=== PATIENT | female | born 1990 | race American Indian/Alaskan Native ===

== ENCOUNTER 2019-10-23 17:51 | Emergency (ER) | payer BC, MEDICAID ==
[2019-10-23 20:32] VITALS: BP 127/71
--- NOTE | 2019-10-23 20:34 | Event Note ---
ED Screening Note Date of service: 10/23/19 Time: 20:33 ED Screening Note: 29 y o female presents with umbilical pain and swelling that has worsened in past couple of days This initial assessment/diagnostic orders/clinical plan/treatment(s) is/are subject to change based on patients health status, clinical progression and re- assessment by fellow clinical providers in the ED. Further treatment and workup at subsequent clinical providers discretion. Patient/guardian urged not to elope from the ED as their condition may be serious if not clinically assessed and managed. Initial orders include: ua,upt,cbc,cmp CT
[2019-10-23 21:17] LABS: Basophils % (Auto) 0.3 % (0.0-1.8); Eosinophils # (Auto) 0.2 K/mm3 (0.0-0.4); Eosinophils % (Auto) 3.6 % (0.0-4.3); Hematocrit 32.8 % (30.3-42.9); Hemoglobin 10.8 gm/dl (10.1-14.3); Lymphocytes # (Auto) 2.5 K/mm3 (1.2-5.4); Lymphocytes % (Auto) 37.3 % (13.4-35.0); Mean Corpuscular HGB Conc 33 % (30-34); Mean Corpuscular Volume 88 fl (79-97); Monocytes # (Auto) 0.7 K/mm3 (0.0-0.8); Monocytes % (Auto) 10.6 % (0.0-7.3); Platelet Count 254 K/mm3 (140-440); Red Blood Count 3.74 M/mm3 (3.65-5.03); Red Cell Distribution Width 16.4 % (13.2-15.2)
[2019-10-23 21:31] LABS: Alanine Aminotransferase 12 units/L (7-56); Albumin 3.8 g/dL (3.9-5); BUN/Creatinine Ratio 12; Blood Urea Nitrogen 12 mg/dL (7-17); Calcium 8.6 mg/dL (8.4-10.2); Hemolysis Index 10
[2019-10-23] MEDS ORDERED: FAMOTIDINE 20 MG/2 ML INJ IV ONE (22:07)
[2019-10-23] MEDS ORDERED: MORPHINE 4 MG/1 ML INJ IV ONE (22:07)
[2019-10-23] MEDS ORDERED: ONDANSETRON 4 MG/2 ML INJ IV ONE (22:07)
[2019-10-23 22:43] LABS: Bacteria,Urine 1+ /HPF (Negative); Bilirubin,Urine NEG (Negative); Blood,Urine NEG (Negative); Color,Urine Yellow (Yellow); Mucus,Urine FEW /HPF; Protein,Urine <15 mg/dL mg/dL (Negative)
[2019-10-23 22:44] LABS: HCG Qualitative,Urine Negative (Negative)
--- NOTE | 2019-10-24 00:08 | Cat Scan Report ---
CT of the abdomen and pelvis with contrast INDICATION: Periumbilical pain x4 days COMPARISON: 04/15/2019 FINDINGS: Lung bases are clear. The liver, spleen, pancreas, adrenal glands and kidneys show no abnor malities. No definite gallbladder or biliary tree abnormality. No fluid or adenopathy in the upper ab domen. There is a moderate sized umbilical hernia containing fat which is indurated suggesting fat ne crosis. There is no bowel within this area and no abscess or fluid. CT of the pelvis shows a normal appendix with no evidence of appendicitis. Follicular cysts are seen in the ovaries without free fluid. No uterine masses. No diverticulosis or diverticulitis. There is n o inguinal hernia or bowel obstruction. Surgical clips are seen in the pelvis these appear to be tuba l ligation clips but in fact are in the left lower quadrant and are not attached to the fallopian tub es. IMPRESSION: 1. Fat-containing umbilical hernia with likely fat necrosis. No bowel is seen in this area. The appen travis is normal. 2. Free-floating surgical clips in the left lower quadrant have the appearance of tubal ligation clip s and again are not attached to the fallopian tubes. Automated exposure control was utilized to diminish radiation dose. Signer Name: Paul Jenkins MD Signed: 10/24/2019 12:04 AM Workstation Name: [id number]
--- NOTE | 2019-10-24 00:47 | Emergency Department Report ---
ED Abdominal Pain HPI - General Chief Complaint: Abdominal Pain Stated Complaint: ABDOMINAL PAIN Source: patient Mode of arrival: Ambulatory Limitations: No Limitations - History of Present Illness Initial Comments: Patient is a 29-year-old -[place] female with no past medical history who presents to the ED with complaint of acute onset persistent periapical pain with nausea and vomiting for the last 2 days. Patient states that the pain is sharp, constant and is worse with any movement. Patient denies dizziness, fever, chills, diarrhea, dysuria, urinary frequency and urgency, constipation, low back pain, vaginal bleeding, dyspareunia, vaginal discharge, cough, chest pain or shortness of breath. MD Complaint: abdominal pain -: Sudden, days(s) (2) Location: periumbilical Radiation: none Migration to: no migration Severity: severe Severity scale (0 -10): 7 Quality: aching, sharp Consistency: constant Improves With: nothing Worsens With: vomiting, movement Associated Symptoms: denies other symptoms, nausea, vomiting, anorexia. denies: diarrhea, fever, chills, dysuria, hematemesis, hematochezia, melena, hematuria - Related Data LMP Date: 10/14/19 Previous Rx's Medication Instructions Recorded Last Taken Type Famotidine [Pepcid] 20 mg PO Q12H #20 tablet 10/24/19 Unknown Rx Ketorolac [Toradol] 10 mg PO Q8H PRN #20 tablet 10/24/19 Unknown Rx Ondansetron [Zofran Odt] 4 mg PO Q6HR PRN #20 tab.rapdis 10/24/19 Unknown Rx cephALEXin [Keflex] 500 mg PO Q8HR #30 capsule 10/24/19 Unknown Rx traMADoL [Ultram] 50 mg PO Q6HR PRN #12 tablet 10/24/19 Unknown Rx Allergies Allergy/AdvReac Type Severity Reaction Status Date / Time No Known Allergies Allergy Unverified 04/15/19 19:45 ED Review of Systems ROS: Stated complaint: ABDOMINAL PAIN Other details as noted in HPI Constitutional: denies: chills, fever Eyes: denies: eye pain, eye discharge, vision change ENT: denies: ear pain, throat pain Respiratory: denies: cough, shortness of breath, wheezing Cardiovascular: denies: chest pain, palpitations Endocrine: no symptoms reported Gastrointestinal: abdominal pain, nausea, vomiting. denies: diarrhea Genitourinary: denies: urgency, dysuria, discharge Musculoskeletal: denies: back pain, joint swelling, arthralgia Skin: denies: rash, lesions Neurological: denies: headache, weakness, paresthesias Psychiatric: denies: anxiety, depression Hematological/Lymphatic: denies: easy bleeding, easy bruising ED Past Medical Hx - Past Medical History Previous Medical History?: No - Surgical History Past Surgical History?: No Additional Surgical History: Dental implants 04/15/19, x3 - Social History Smoking Status: Never Smoker Substance Use Type: None - Medications Home Medications: Home Medications Medication Instructions Recorded Confirmed Last Taken Type Famotidine [Pepcid] 20 mg PO Q12H #20 tablet 10/24/19 Unknown Rx Ketorolac [Toradol] 10 mg PO Q8H PRN #20 tablet 10/24/19 Unknown Rx Ondansetron [Zofran Odt] 4 mg PO Q6HR PRN #20 tab.rapdis 10/24/19 Unknown Rx cephALEXin [Keflex] 500 mg PO Q8HR #30 capsule 10/24/19 Unknown Rx traMADoL [Ultram] 50 mg PO Q6HR PRN #12 tablet 10/24/19 Unknown Rx ED Physical Exam - General Limitations: No Limitations General appearance: alert, in no apparent distress - Head Head exam: Present: atraumatic, normocephalic, normal inspection - Eye Eye exam: Present: normal appearance, PERRL, EOMI Pupils: Present: normal accommodation - ENT ENT exam: Present: normal exam, normal orophraynx, mucous membranes moist, TM's normal bilaterally, normal external ear exam - Neck Neck exam: Present: normal inspection, full ROM - Respiratory Respiratory exam: Present: normal lung sounds bilaterally. Absent: respiratory distress, wheezes, rhonchi, chest wall tenderness, accessory muscle use - Cardiovascular Cardiovascular Exam: Present: regular rate, normal rhythm, normal heart sounds. Absent: systolic murmur, diastolic murmur, rubs, gallop - GI/Abdominal GI/Abdominal exam: Present: soft, tenderness (Palpable umbilical hernia), normal bowel sounds. Absent: guarding, rebound, hyperactive bowel sounds, hypoactive bowel sounds, organomegaly - Extremities Exam Extremities exam: Present: normal inspection, full ROM, normal capillary refill - Back Exam Back exam: Present: normal inspection, full ROM. Absent: tenderness, CVA tenderness (R), muscle spasm, paraspinal tenderness, vertebral tenderness - Neurological Exam Neurological exam: Present: alert, oriented X3, CN II-XII intact, normal gait, reflexes normal - Psychiatric Psychiatric exam: Present: normal affect, normal mood - Skin Skin exam: Present: warm, dry, intact, normal color. Absent: rash ED Course Vital Signs 10/23/19 20:30 Temperature 98 F Pulse Rate 89 Respiratory 18 Rate Blood Pressure 127/71 O2 Sat by Pulse 99 Oximetry ED Medical Decision Making - Lab Data Result diagrams: 10/23/19 20:48 10/23/19 20:48 - Radiology Data Radiology results: report reviewed, [place] [id number] Cat Scan Report Signed Patient: SUE BARKER MR#: [id number] : 1990 Acct:[id number] Age/Sex: 29 / F ADM Date: 10/23/19 Loc: ED Attending Dr: Ordering Physician: CANDY DAN Date of Service: 10/23/19 Procedure(s): CT abdomen pelvis w con Accession Number(s): [id number] cc: CANDY DAN CT of the abdomen and pelvis with contrast INDICATION: Periumbilical pain x4 days COMPARISON: 04/15/2019 FINDINGS: Lung bases are clear. The liver, spleen, pancreas, adrenal glands and kidneys show no abnormalities. No definite gallbladder or biliary tree abnormality. No fluid or adenopathy in the upper abdomen. There is a moderate sized umbilical hernia containing fat which is indurated suggesting fat necrosis. There is no bowel within this area and no abscess or fluid. CT of the pelvis shows a normal appendix with no evidence of appendicitis. Follicular cysts are seen in the ovaries without free fluid. No uterine masses. No diverticulosis or diverticulitis. The re is no inguinal hernia or bowel obstruction. Surgical clips are seen in the pelvis these appear to be tubal ligation clips but in fact are in the left lower quadrant and are not attached to the fallopian tubes. IMPRESSION: 1. Fat-containing umbilical hernia with likely fat necrosis. No bowel is seen in this area. The appendix is normal. 2. Free-floating surgical clips in the left lower quadrant have the appearance of tubal ligation clips and again are not attached to the fallopian tubes. Automated exposure control was utilized to diminish radiation dose. Signer Name: Paul Jenkins MD Signed: 10/24/2019 12:04 AM Workstation Name: [id number] Transcribed By: MARLENY Dictated By: Paul Jenkins MD Electronically Authenticated By: Paul Jenkins MD Signed Date/Time: 10/24/19 0004 DD/ 2359 TD/TT: - Medical Decision Making This is a 29-year-old female who presented to the ED with complaint of acute onset persistent periumbilical abdominal pain with nausea and vomiting for 2 days. In the ED, patient is alert and oriented x3 and is not in distress with normal vital signs. Patient appears to be in in significant pain. Lab test r esults were reviewed and are all nonactionable except for urinalysis that showed significant UTI. Abdomen pelvis CT scan with contrast shows fat-containing umbilical hernia with likely fat necrosis. No bowel is seen in this area. The appendix is normal. It also shows free-floating surgical clips in the left lower quadrant have the appearance of tubal ligation clips and again are not attached to the fallopian tubes. Patient was treated for pain and nausea and vomiting. On reevaluation, patient's pain is well controlled with medications. Other differential diagnoses were considered during this treatment process including acute appendicitis, small bowel obstruction, acute UTI, PID, colitis, enteritis, gastroenteritis, GERD or neoplasm. Patient was discharged home on pain medications and antiemetics as well as antibiotics for UTI. Patient was referred to the general surgeon on-call Dr. Warren for follow-up. Patient was advised to contact Dr. Warren's office first thing in the morning to schedule a follow-up appointment. Patient was also advised to return to the ED immediately if symptoms get worse. - Differential Diagnosis Appendicitis; UTI; Colitis; SBO; PID; GERD; Gastroenteritis Critical care attestation.: If time is entered above; I have spent that time in minutes in the direct care of this critically ill patient, excluding procedure time. ED Disposition Clinical Impression: Abdominal pain, acute, periumbilical, Umbilical hernia with obstruction, without gangrene, Acute urinary tract infection Disposition: - TO HOME OR SELFCARE Is pt being admited?: No Does the pt Need Aspirin: No Condition: Stable Instructions: Abdominal Pain (ED), Umbilical Hernia (ED), Urinary Tract Infection in Women (ED) Additional Instructions: Your test results are unremarkable but the abdomen pelvis CT scan with contrast shows umbilical hernia that contains necrotic fat. Therefore take pain medications as needed with food, take antibiotics for UTI and follow-up with a general surgeon on-call Dr. Warren for further evaluation of your umbilical hernia. Please contact Dr. Warren's office first thing in the morning to schedule a follow-up appointment for the hernia. Return to the ED immediately if symptoms get worse. Prescriptions: cephALEXin [Keflex] 500 mg PO Q8HR #30 capsule Famotidine [Pepcid] 20 mg PO Q12H #20 tablet Ketorolac [Toradol] 10 mg PO Q8H PRN #20 tablet PRN Reason: Pain traMADoL [Ultram] 50 mg PO Q6HR PRN #12 tablet PRN Reason: Pain Ondansetron [Zofran Odt] 4 mg PO Q6HR PRN #20 tab.rapdis PRN Reason: Nausea Referrals: PORTER LEMONS MD [Staff Physician] - 3-5 Days SYLVIA WARREN MD [Staff Physician] - 3-5 Days Forms: Work/School Release Form(ED) Time of Disposition: 00:45 Print Language: AMHARIC
== END 2019-10-24 01:00 | disposition home or self-care (01) ==
LOC: ED 17:51
DX: K42.9 Umbilical hernia without obstruction or gangrene (principal); N39.0 Urinary tract infection, site not specified; R10.33 Periumbilical pain; Z79.899 Other long term (current) drug therapy; Z98.890 Other specified postprocedural states
CPT/HCPCS: 36415; 74177; 80053; 81001; 81025; 85025; 87086; 96374; 96375; 99284; J2270; J2405; Q9967

== ENCOUNTER 2019-11-05 07:02 | Day surgery (SDC) | payer BC ==
--- NOTE | 2019-11-04 11:14 | Short Stay Summary ---
Short Stay Documentation Date of service: 11/05/19 - History H&P: obtained from office - Allergies and Medications Current Medications: Allergies No Known Allergies Allergy (Verified 11/04/19 10:42) Home Medications Medication Instructions Recorded Confirmed Last Taken Type Famotidine [Pepcid] 20 mg PO Q12H #20 tablet 10/24/19 11/04/19 Unknown Rx Ketorolac [Toradol] 10 mg PO Q8H PRN #20 tablet 10/24/19 11/04/19 Unknown Rx Ondansetron [Zofran Odt] 4 mg PO Q6HR PRN #20 tab.rapdis 10/24/19 11/04/19 Unknown Rx cephALEXin [Keflex] 500 mg PO Q8HR #30 capsule 10/24/19 11/04/19 Unknown Rx traMADoL [Ultram] 50 mg PO Q6HR PRN #12 tablet 10/24/19 11/04/19 Unknown Rx - Physical exam General appearance: no acute distress Integumentary: no rash HEENT: Atraumatic Lungs: Normal air movement Neurological: Normal speech - Brief post op/procedure progress note Date of procedure: 11/05/19 (dictation:[id number]) Pre-op diagnosis: incarcerated umbilical hernia Post-op diagnosis: same Procedure: open umbo repair IVF 1L EBl ~20cc Anesthesia: GETA Findings: 7mm fascial defect with incarcerated fat. A portion of the fat tissue was fibrotic and firm. Surgeon: SYLVIA VASQUEZ Estimated blood loss: minimal Pathology: list (incarcerated herniated fat) Specimen disposition: to lab Condition: stable - Hospital course Hospital course: uneventful - Disposition Condition at discharge: Stable Disposition: DC-01 TO HOME OR SELFCARE Short Stay Discharge Plan Activity: advance as tolerated Diet: regular Wound: open to air, keep clean and dry, remove dressing (after 48 hours) Special Instructions: no heavy lifting Additional Instructions: Post Operative Instructions Activity: no heavy lifting for next 1 week. May shower on . May remove dressing after 48 hours. Pat dry the wound after showering. Keep incision sites clean and dry After surgery, start with a light diet. Consider starting with liquids. If you do well, you can advance to a regular diet as you feel comfortable. Apply an ice pack to the wound or wounds for 10-20 minutes at a time. Do this at least 4-5 times a day. You can do it more if he would like. Pain Medication Schedule for the first 2 days after surgery: Gabapentin 600mg twice a day Celebrex (celecoxib) 200mg twice a day Tylenol 500mg four times a day (every 6 hours) After the first 2 days, then take alternating doses of ibuprofen and Tylenol as needed for pain. Take 600 mg of ibuprofen every 6 hours as needed. Take 500 mg of Tylenol every 6 hours as needed. You should alternate these 2 medicines. Make sure you take the ibuprofen with food. It is very important that you use the prescription narcotic pain medicine (hydrocodone) only for very severe pain. Do not take the narcotic medicine before you try using all the medications listed above. YOU WERE MEDICATED WITH 1HYDROCODONE TAB BY MOUTH AT 2:50 PM We will call you in a couple of days to see how youre doing. If you have any questions or concerns, always feel free to call the clinic ([phone]) at any time. Follow up with: PRIMARY CAREMD [Referring] - 7 Days SYLVIA VASQUEZ MD [Staff Physician] - 14 Days Forms: Outpatient Surgery DC Inst. Prescriptions: Celecoxib [celeBREX] 200 mg PO BID #4 capsule Gabapentin [Neurontin] 600 mg PO BID #4 tab HYDROcodone/APAP 5-325 [Alexander 5-325 mg TAB] 1 each PO Q6HR PRN #10 tablet PRN Reason: Pain , Severe (7-10)
[~2019-11-05 07:02] MED LIST: ACETAMINOPHEN 500 MG TAB PO ONE; CELECOXIB 200 MG CAP PO NR; GABAPENTIN 400 MG CAP PO SCH; SODIUM CHLORIDE 0.9% 1000 ML 1,000 ML IV SCH; ceFAZolin/Water 2 GM/20 ML 2 GM/20 ML SYRINGE IV NR
[2019-11-05] MEDS ORDERED: SODIUM CHLORIDE 0.9% 1000 ML 1,000 ML IV SCH (08:30)
[2019-11-05] MEDS ORDERED: HYDROmorphone 1 MG/1 ML INJ IV PRN (08:30)
--- NOTE | 2019-11-05 08:36 | Anesthesia Day of Surgery ---
Anesthesia Day of Surgery - Day of Surgery Patient Examined: Yes Patient H&P Reviewed: Yes Patient is NPO: Yes
--- NOTE | 2019-11-05 08:36 | Anesthesia Consultation ---
Anesthesia Consult and Med Hx Date of service: 11/05/19 - Airway Anesthetic Teeth Evaluation: Good (permanent implants) ROM Head & Neck: Adequate Mental/Hyoid Distance: Adequate Mallampati Class: Class II Intubation Access Assessment: Probably Good - Pulmonary Exam CTA: Yes - Cardiac Exam Cardiac Exam: RRR - Pre-Operative Health Status ASA Pre-Surgery Classification: ASA2 Proposed Anesthetic Plan: General - Pulmonary Hx Smoking: No Hx Respiratory Symptoms: No - Cardiovascular System Hx Hypertension: No - Central Nervous System CVA: No - Gastrointestinal Hx Gastroesophageal Reflux Disease: Yes (well controlled) - Endocrine Hx Renal Disease: No Hx Liver Disease: No Hx Non-Insulin Dependent Diabetes: Yes ("pre-DM") - Hematic Hx Anemia: Yes (prior hx w/ transfusion in 2009) - Other Systems Hx Obesity: No - Additional Comments Anesthesia Medical History Comments: No hx anesthetic complications.
[2019-11-05] MEDS ORDERED: MIDAZOLAM 2 MG/2 ML INJ IV NR (09:00)
[2019-11-05] MEDS ORDERED: LACTATED RINGERS 1,000 ML IV SCH (09:00)
[2019-11-05] MEDS ORDERED: LIDOCAINE (1%) 10 MG/1 ML VIAL 20 ML MDV ONE (09:50)
[2019-11-05] MEDS ORDERED: BUPIVACAINE-EPINEPHRINE/PF 0.5%-1:200,000 (10 ML) VIAL INFILTRATI ONE (09:51)
[2019-11-05] MEDS ORDERED: LIDOCAINE MPF (2%) 20 MG/1 ML VIAL 5 ML ONE (10:06)
[2019-11-05] MEDS ORDERED: fentaNYL 250 MCG/5 ML INJ ONE (10:06)
[2019-11-05] MEDS ORDERED: ROCURONIUM 50 MG/5 ML INJ IV ONE (10:06)
[2019-11-05] MEDS ORDERED: propofoL 200 MG/20 ML VIAL IV ONE (10:07)
[2019-11-05] MEDS ORDERED: PHENYLEPHRINE/NS 1,000 MCG/10 ML SYRINGE (OR USE) IV ONE (10:08)
[2019-11-05] MEDS ORDERED: ONDANSETRON 4 MG/2 ML INJ ONE (10:08)
[2019-11-05] MEDS ORDERED: dexAMETHasone 20 MG/5 ML VIAL ONE (10:08)
[2019-11-05] MEDS ORDERED: NEOSTIGMINE 10MG/10 ML INJ MDV ONE (10:08)
[2019-11-05] MEDS ORDERED: GLYCOPYRROLATE 0.4 MG/2 ML INJ ONE (10:08)
[2019-11-05] MEDS ORDERED: BUPIVACAINE-EPINEPHRINE/PF 0.5%-1:200,000 (30 ML) VIAL INFILTRATI ONE (10:53)
[2019-11-05] MEDS ORDERED: LIDOCAINE (1%) 10 MG/1 ML VIAL 20 ML MDV INFILTRATI ONE (10:53)
[2019-11-05] MEDS ORDERED: HYDROmorphone 1 MG/1 ML INJ ONE (11:21)
--- NOTE | 2019-11-05 12:21 | Operative Report ---
PREOPERATIVE DIAGNOSIS: Incarcerated umbilical hernia. POSTOPERATIVE DIAGNOSIS: Incarcerated umbilical hernia. PROCEDURE: Open umbilical hernia repair. ATTENDING PHYSICIAN: Miguelina Warren MD ANESTHESIA: General. ESTIMATED BLOOD LOSS: Minimal. FLUIDS: 1 liter. FINDINGS: Incarcerated preperitoneal fat with 7 mm fascial defect. There was a portion of fat tissue that was hard and fibrotic, probably ischemic. SPECIMENS: Incarcerated fat tissue. IMPLANTS: None. DRAINS: None. COMPLICATIONS: None. DISPOSITION: Stable, transferred to Recovery Room. INDICATIONS: This is a 29-year-old female who presented to the office with complaints of painful mass at the umbilicus. She had been seen in the Emergency Room and had a CT scan done, which showed possible necrotic fat tissue, but no evidence of any bowel in the hernia. The patient was assessed to be in need for repair. Procedure, risks, benefits were explained to the patient. Risks include but were not limited to infection, bleeding, pain, injury to surrounding structures, possible need for further procedures in the future, possible recurrence of hernia. The patient understood and consented. OPERATIVE NOTE: The patient was brought to the operating room and placed on the table in supine position. After adequate general anesthesia was established, the patient was prepped and draped in usual sterile fashion. Timeout had been done. Antibiotics had been given. SCDs were in place. I began by marking out the planned supraumbilical incision site. This area was anesthetized. Skin was sharply incised. Dissection was done with electrocautery. We dissected out the incarcerated fat tissue. Most of it looked completely viable. However, the firm mass on the left side that we had palpated earlier in the clinic was clearly very dense. It turned out that it was a portion of the same fat tissue that had herniated. However, this portion of fat also seemed to have gotten strangulated at its base, most likely making it ischemic and fibrotic. Everything was dissected out. I excised the incarcerated fat with electrocautery going slowly to make sure there was no evidence of any bleeding. Once that was done, specimen was passed off the table in sterile fashion. We inspected the fascial defect. Everything looked very good, edges were all viable. I closed with [id number] 0 Ethibond stitch. We made sure there was good hemostasis, wound was thoroughly irrigated. Additional local was injected into the surrounding tissue. Deep tissue was closed with interrupted 3-0 Vicryl sutures in 2 layers. Skin was closed with a running 4-0 Monocryl subcuticular stitch. Skin was cleaned and dried. Dermabond was placed. We placed a gauze at the base of the umbilicus to help keep it down and cover that with a Tegaderm. All counts were correct at the end of the case. The patient tolerated the procedure well. There were no complications. I spoke with the mother at the end of the case. JOB# [id number] MONA/JARON
[2019-11-05] MEDS ORDERED: ePHEDrine SULFATE 50 MG/1 ML INJ ONE (13:57)
[2019-11-05] MEDS ORDERED: ePHEDrine SULFATE 50 MG/1 ML INJ IM ONE (14:00)
[2019-11-05] MEDS ORDERED: LACTATED RINGERS 1,000 ML ONE (14:19)
[2019-11-05] MEDS ORDERED: HYDROcodone/ACETAMINOPHEN 5-325 MG TAB PO PRN (14:45)
[2019-11-05] MEDS ORDERED: ONDANSETRON 4 MG/2 ML INJ IV PRN (15:00)
[2019-11-05 15:39] VITALS: BP 110/69
== END 2019-11-05 07:03 | disposition home or self-care (01) ==
LOC: OR 07:02
PROVIDERS: ATTEND Surgery
DX: K42.0 Umbilical hernia with obstruction, without gangrene (principal); K21.9 Gastro-esophageal reflux disease without esophagitis; E11.9 Type 2 diabetes mellitus without complications; Z72.89 Other problems related to lifestyle; Z79.899 Other long term (current) drug therapy; Z87.440 Personal history of urinary (tract) infections; Z98.51 Tubal ligation status; Z98.891 History of uterine scar from previous surgery; Z98.890 Other specified postprocedural states; Z86.2 Personal history of diseases of the blood and blood-forming organs and certain disorders involving the immune mechanism
CPT/HCPCS: 49587; 81025; 88304; J0690; J1100; J1170; J2250; J2370; J2405; J2704; J2710; J3010; J7030; J7120; 88302

== ENCOUNTER 2020-04-09 07:43 | Outpatient (CLI) | payer BC ==
--- NOTE | 2020-04-09 09:57 | Vascular Lab Report ---
DUPLEX DOPPLER LOWER EXTREMITY VEINS, LEFT INDICATION / CLINICAL INFORMATION: R60.0 LOCALIZED EDEMA/PLEASE EVAL FOR VENOUS INSUFFICIENCY. TECHNIQUE: Duplex doppler imaging was performed through the veins of the left lower extremity using venous compr ession and other maneuvers. COMPARISON: None available. FINDINGS: LEFT COMMON FEMORAL VEIN: Negative. LEFT FEMORAL VEIN: Negative. LEFT POPLITEAL VEIN: Negative. LEFT CALF VEINS: Negative. ADDITIONAL FINDINGS: Reflux noted in the external iliac vein, common femoral vein, and superficial fe moral vein. Larger edema present. IMPRESSION: 1. No sonographic evidence for DVT in the left lower extremity. 2. Venous insufficiency as detailed above. Signer Name: Dashawn Tracy MD Signed: 04/09/2020 9:53 AM Workstation Name: [id number]
== END 2020-04-09 07:44 | disposition home or self-care (01) ==
LOC: VAS 07:43
PROVIDERS: ATTEND Internal Medicine
DX: I87.2 Venous insufficiency (chronic) (peripheral) (principal); R60.0 Localized edema